=== PATIENT | male | born 1990 | race Caucasian/White ===

== ENCOUNTER 2020-04-05 20:05 | Emergency (ER) | payer MEDICAID ==
[~2020-04-05] VITALS: Ht 172.7 cm; Wt 76.2 kg
[2020-04-05 20:12] VITALS: Ht 172.7 cm; Wt 76.2 kg
[2020-04-05 21:48] VITALS: BP 125/78
== END 2020-04-05 21:48 | disposition home or self-care (01) ==
LOC: ED 20:05
DX: S61.211A Laceration without foreign body of left index finger without damage to nail, initial encounter (principal); X58.XXXA Exposure to other specified factors, initial encounter; Y93.89 Activity, other specified; Y92.89 Other specified places as the place of occurrence of the external cause; Y99.8 Other external cause status
CPT/HCPCS: J2001

== ENCOUNTER 2020-04-09 16:05 | Emergency (ER) | payer MEDICAID ==
[~2020-04-09] VITALS: Ht 175.3 cm; Wt 78.0 kg
[2020-04-09 16:14] VITALS: Ht 175.3 cm; Wt 78.0 kg
[2020-04-09 16:47] VITALS: BP 115/70
== END 2020-04-09 16:47 | disposition home or self-care (01) ==
LOC: ED 16:05
DX: S61.211D Laceration without foreign body of left index finger without damage to nail, subsequent encounter (principal); X58.XXXD Exposure to other specified factors, subsequent encounter

== ENCOUNTER 2020-04-14 13:37 | Emergency (ER) | payer MEDICAID ==
[2020-04-14 13:52] VITALS: BP 122/72; Ht 175.3 cm
== END 2020-04-14 15:25 | disposition home or self-care (01) ==
LOC: ED 13:37
DX: S61.212D Laceration without foreign body of right middle finger without damage to nail, subsequent encounter (principal); W26.0XXD Contact with knife, subsequent encounter